=== PATIENT | female | born 1990 | race Caucasian/White ===

== ENCOUNTER 2017-09-12 07:07 | Inpatient (IN) | payer BC ==
[2017-09-12] MEDS ORDERED: METHYLERGONOVINE 0.2MG/ML AMP IM PRN (07:27)
[2017-09-12] MEDS ORDERED: Ringers Lactate 1,000 ML IV PRN (07:27)
[2017-09-12] MEDS ORDERED: CARBOPROST TROME 250 MCG/ML IM PRN (07:27)
[2017-09-12] MEDS ORDERED: OXYTOCIN/LR 20 UNIT/1,000 ML BAG IV SCH (08:00)
[2017-09-12] MEDS ORDERED: Ringers Lactate 1,000 ML IV SCH (08:00)
[2017-09-12 08:25] LABS: RPR Titer ND
[2017-09-12 08:37] LABS: Absolute Lymphocytes (CBC) 1.8 K/uL (0.7-4.9); Absolute Monocytes 0.8 K/uL (0.1-1.3); Basophils % 0.4 % (0-1.3); Eosinophils % 2.4 % (0-4.4); Hematocrit 35.1 % (36.0-45.0); Lymphocytes % 16.2 % (15.3-44.8); MCH 32.4 pg (27.0-35.0); MCV 91.8 fL (80-100); MPV 10.1 fL (7.6-11.3); Monocytes % 7.4 % (3.3-12.3); RBC Red Blood Cell Count 3.83 M/uL (3.86-4.86); Urine Appearance CLEAR; Urine Bilirubin NEGATIVE (NEG); Urine Blood NEGATIVE (NEG); Urine Color YELLOW; Urine Glucose NEGATIVE (NEG); Urine Protein NEGATIVE (NEG); Urine Specific Gravity >=1.030 (1.005-1.030); Urine pH 6.5 (5.0-7.0)
[2017-09-12 08:47] LABS: Urine Microscopic Reflex NO UMIC
[2017-09-12 09:08] VITALS: BMI 29.5
[2017-09-12] MEDS ORDERED: ROPIVACAINE HCL 100 ML IV PRN (09:41)
[2017-09-12] MEDS ORDERED: FENTANYL CITR 100 MCG/2 ML IV ONE (09:43)
[2017-09-12] MEDS ORDERED: ROPIVACAINE HCL 2 MG/ML 100ML IV ONE (09:43)
--- NOTE | 2017-09-12 14:39 | HP ---
Date of Admission: 09/12/2017 History Of Present Illness: Cheyenne is a 27-year-old, 2 para 1-0-0-1, who presents at 39 weeks and 1 day gestation for elective induction of labor. The patient has obtained care with vt beginning at 11 weeks gestation. She has been compliant with visits. There have not been any issues throughout her care. She has a history of 1 prior vaginal , delivered in 2013 at 39 weeks, 12 hours length of labor, 7 pounds 5 ounces male delivered vaginally. She had an epidural. Delivery was achieved at [facility]. Her blood type is B positive. No antibodies. She is rubella immune. RPR was negative. HIV negative. Hepatitis negative. Level 2 ultrasound was normal. She had noninvasive testing done, which was low risk male . GBS negative. Last ultrasound was performed a week ago. Infant was in cephalic presentation. EFW 6 pounds 15 ounces. SAKSHI was 9 cm. She received her Tdap i n the office on August 24, 2017. Past Medical History: Includes anxiety and depression. Past Surgical History: Includes 1 vaginal and surgery on her knee in 2004. Family History: Noncontributory. Social History: No tobacco, alcohol, or drug use. She is and working. Physical Examination: Vital Signs: On admission, blood pressure is 107/57, pulse of 59, respirations 18. She is afebrile. General: The patient is resting comfortably in bed with some minimal distress from contractions. Head and Neck: Normocephalic atraumatic. Heart: Regular rate and rhythm. Respiratory: Symmetric, nonlabored breathing. Abdomen: Gravid. Extremities: Bilateral lower extremities, no clubbing, cyanosis, or edema. Vaginal: Normal external female genitalia. Vagina is pink, moist, normal rugae. Cervix is 2 cm dil ated, 50-60% effaced, -2 station. Rupture of membranes performed clear fluid noted. On maternal fet al monitoring, heart rate baseline is at 140, good accelerations, moderate variability, categor y 1 tracing. [place] contractions are irregular. Pitocin is at 2 milliunits. Assessment And Plan: Cheyenne is a 27-year-old, 2 para 1-0-0-1, at 39 weeks and 1 day gestation , who presents for elective induction of labor. Pitocin is being given for augmentation. AROM has b een performed. Clear fluid was noted. Patient desires epidural placement. We will notify Anesthesi a. Continue maternal monitoring. Anticipate normal vaginal . HUSSAIN Voice ID: [id number]
[2017-09-12] MEDS ORDERED: ACETAMINOPHEN 500 MG TAB PO PRN (18:51)
[2017-09-12] MEDS ORDERED: METHYLERGONOVINE 0.2 MG TAB PO PRN (18:51)
[2017-09-12] MEDS ORDERED: BISACODYL 10 MG RECTAL SUPP RECT PRN (18:51)
[2017-09-12] MEDS ORDERED: DOCUSATE NA/SENNA CONC 1 TAB PO PRN (18:51)
[2017-09-12] MEDS ORDERED: Oxycodone HCl/Acetaminophen 1 TAB TAB PO PRN ×2 (18:51)
[2017-09-12] MEDS ORDERED: ONDANSETRON 4 MG (ODT) TAB PO PRN (18:51)
--- NOTE | 2017-09-12 18:53 | P.OP ---
Date of Service: 09/12/17 Findings and Operative Technique Patient delivered a viable male in cephalic presentation on 09/12/17 at 18:36. was delivered in occiput posterior position over a midline episiotomy. Once was delivered nose and mouth were suctioned with a suction bulb. Cord was clamped and cut and infant was placed on mother's abdomen for skin to skin bonding. Attention was then turned to the placenta which was delivered with gentle traction at 18:39. Placenta was examined and noted to be intact. Attention was then turned to the episiotomy which was then repaired with a 2.0 vicryl in usual fashion. Fundus was palpate and noted to be firm. EBL: 250 cc : 99 Infant: male 7 lb 5 oz. First stage of labor: 8 hours 42 min Second stage 19 min Both mom and baby are doing well.
[2017-09-12] MEDS: IBUPROFEN 200 MG TAB PO PRN (21:25)
[2017-09-13 04:25] LABS: RPR (Rapid Plasma Reagin) NON-REACT (NON-REACT)
[2017-09-13] MEDS: IBUPROFEN 200 MG TAB PO PRN ×2 (04:30→20:30)
[2017-09-13 06:45] LABS: Absolute Lymphocytes (CBC) 2.3 K/uL (0.7-4.9); Absolute Monocytes 1.4 K/uL (0.1-1.3); Absolute Neutrophil 13.8 K/uL (1.8-8.0); Basophils % 0.3 % (0-1.3); Eosinophils % 1.3 % (0-4.4); Hematocrit 34.4 % (36.0-45.0); Lymphocytes % 12.9 % (15.3-44.8); MCH 31.3 pg (27.0-35.0); MCV 93.2 fL (80-100); MPV 10.2 fL (7.6-11.3); Monocytes % 7.8 % (3.3-12.3); RBC Red Blood Cell Count 3.69 M/uL (3.86-4.86)
[2017-09-13] MEDS ORDERED: KETOROLAC 30 MG/ML INJ IM PRN (09:41)
[2017-09-13 22:31] VITALS: BP 120/71; TEMP 97.7
--- NOTE | 2017-09-13 23:14 | P.DS ---
Admission Date: 09/12/17 Discharge Date: 09/13/17 Disposition: ROUTINE DISCHARGE Discharge Condition: GOOD Brief History of Present Illness: see h&P Hospital Course: Patient is doing well. She has some pain. In control. Bonding with the baby. She is breast feeding. Vital Signs/Physical Exam: Temp Pulse Resp BP Pulse Ox 97.7 F 79 16 120/71 0 L 09/13/17 20:00 09/13/17 20:00 09/13/17 20:00 09/13/17 20:00 09/13/17 20:00 General: Alert, In no apparent distress HEENT: Atraumatic Neck: Supple Respiratory: Normal air movement Cardiovascular: No edema Gastrointestinal: Soft and benign (fundus firm below umbilicus) Musculoskeletal: No clubbing, No swelling Integumentary: No rashes Neurological: Normal gait, Normal speech External genitalia: No edema Laboratory Data at Discharge: WBC 17.8 K/uL (4.3-10.9) H D 09/13/17 06:00 Hgb 11.5 g/dL (12.0-15.0) L 09/13/17 06:00 Hct 34.4 % (36.0-45.0) L 09/13/17 06:00 Plt Count 143 K/uL (152-406) L 09/13/17 06:00 Home Medications: NK [No Home Meds] 09/12/17 Diet: Regular Activity: No lifting more than 10 lbs Followup: Marlon Travis DO [ACTIVE - CAN ADMIT] - (Follow up with Dr. Travis in 6 weeks. Call and make appointment.)
[2017-09-16 19:25] LABS: HBsAG Nonreactive (Nonreactive)
== END 2017-09-13 21:35 | disposition home or self-care (01) | DRG 775 ==
LOC: EDSTATUS 07:07 → 2ND-WC 07:08
PROVIDERS: ADMIT Student in an Organized Health Care Education/Training Program; ATTEND Student in an Organized Health Care Education/Training Program
PROC: 0W8NXZZ Division of Female Perineum, External Approach (ICD-10-PCS; principal; 2017-09-12)
PROC: 10E0XZZ Delivery of Products of Conception, External Approach (ICD-10-PCS; 2017-09-12)
PROC: 10907ZC Drainage of Amniotic Fluid, Therapeutic from Products of Conception, Via Natural or Artificial Opening (ICD-10-PCS; 2017-09-12)
PROC: 3E033VJ Introduction of Other Hormone into Peripheral Vein, Percutaneous Approach (ICD-10-PCS; 2017-09-12)
DX: O64.0XX0 Obstructed labor due to incomplete rotation of fetal head, not applicable or unspecified (principal); Z3A.39 39 weeks gestation of pregnancy; Z37.0 Single live birth
CPT/HCPCS: 36415; 81003; 85025; 86592; 86901; 87340; J2210; J2590; J2795; J3010

== ENCOUNTER 2018-11-09 09:47 | Emergency (ER) | payer BC ==
--- NOTE | 2018-11-09 11:04 | ER ---
Nurse's Notes [facility] Name: Cheyenne Coppola Age: 28 yrs Sex: Female : 1990 Arrival Date: 11/09/2018 Time: 09:50 Bed 12 Private MD: Luis Esteban Diagnosis: Suazo's palsy Presentation: 11/09 09:56 Presenting complaint: Patient states: Numbness in the tip of tongue that started on sg Sunday, just getting worse and now is in my lips, denies visual changes or any other neuro symptoms at this time. Transition of care: patient was not received from another setting of care. No acute neurological deficit is noted. Onset of symptoms was November 09, 2018. Risk Assessment: Do you want to hurt yourself or someone else? Patient reports no desire to harm self or others. Initial Sepsis Screen: Does the patient meet any 2 criteria? No. Patient's initial sepsis screen is negative. Does the patient have a suspected source of infection? No. Patient's initial sepsis screen is negative. Care prior to arrival: None. 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 - Social history:: Smoking status: Patient/guardian denies using tobacco. - Ebola Screening: : Patient negative for fever greater than or equal to 101.5 degrees Fahrenheit, and additional compatible Ebola Virus Disease symptoms Patient denies exposure to infectious person Patient denies travel to an Ebola-affected area in the 21 days before illness onset No symptoms or risks identified at this time. Screenin:10 Abuse screen: Denies threats or abuse. Denies injuries from another. Nutritional sg screening: No deficits noted. Tuberculosis screening: No symptoms or risk factors identified. Never had TB. Fall Risk None identified. Assessment: 10:10 VAN Scoring: Arm Drift: Patients demonstrates NO arm weakness. Patient is VAN Negative. sg The patient has not been NPO before screening. The patient is alert, and able to follow commands. The patient does not exhibit slurred or garbled speech. The patient is not exhibiting difficulty speaking. The patient does not exhibit difficulty understanding words. The patient is able to swallow own secretions with no drooling or need for suction. Patient tolerated one teaspoon of water. No drooling, immediate coughing, gurgling, or clearing of the throat was noted. The patient tolerated 90mL of water. No drooling, immediate coughing, gurgling, or clearing of the throat was noted. The patient passed the bedside swallow screening. Oral medications may be given as ordered. Contact Physician for further diet orders. Provider notified of bedside swallow screening results: Merritt Elizalde MD. General: Behavior is calm, cooperative, appropriate for age. Pain: Denies pain. Neuro: Level of Consciousness is awake, alert, obeys commands, Oriented to person, place, time, situation, Mosaic Technician are equal bilaterally Moves all extremities. Full function Gait is steady, Speech is normal, Facial symmetry appears normal, Pupils are PERRLA, Numbness in tongue and lips. Cardiovascular: Capillary refill is brisk in bilateral fingers Patient's skin is warm and dry. Chest pain is denied. Respiratory: Airway is patent Respiratory effort is even, unlabored, Respiratory pattern is regular, symmetrical. GI: No signs and/or symptoms were reported involving the gastrointestinal system. Derm: Skin is pink, warm \T\ dry. Musculoskeletal: No signs and/or symptoms reported regarding the musculoskeletal system. Vital Signs: 09:57 BP 128 / 78; Pulse 69; Resp 18; Temp 97.7; Pulse Ox 99% on R/A; Weight 56.7 kg; Height sg 5 ft. 2 in. (157.48 cm); Pain 0/10; 09:57 Body Mass Index 22.86 (56.70 kg, 157.48 cm) sg NIH Stroke Scale Scores: 10:10 NIHSS Score: 0 sg ED Course: 09:50 Patient arrived in ED. tw3 09:51 Luis Esteban MD is Private Physician. tw3 09:57 Triage completed. sg 09:57 Arm band placed on. sg 10:04 Ajay Thomason PA is PHCP. m 10:04 Merritt Elizalde MD is Attending Physician. jmm 10:10 Patient has correct armband on for positive identification. Bed in low position. Call sg light in reach. Side rails up X2. Pulse ox on. NIBP on. 10:41 Eligio Ramos, NOHEMY is Primary Nurse. sg 11:03 Sher Cohen MD is Referral Physician. jmm 11:29 CT completed. Patient tolerated procedure well. Patient moved back from CT. mw3 11:30 CT Head Brain wo Cont In Process Unspecified. EDMS 11:59 Sher Cohen MD is Referral Physician. jmm 12:10 No provider procedures requiring assistance completed. IV discontinued, intact, sg bleeding controlled, No redness/swelling at site. Pressure dressing applied. Administered Medications: No medications were administered Outcome: 11:03 Discharge ordered by . jmm 11:59 Discharge ordered by MD. jmm 12:10 Discharged to home ambulatory, with family. sg 12:10 Condition: good 12:10 Discharge instructions given to patient, Instructed on discharge instructions, follow up and referral plans. safety practices, Demonstrated understanding of instructions, follow-up care. 12:11 Patient left the ED. NIH Stroke Scale - NIH Stroke Score Date: 11/09/2018 Time: 10:10 Total Score = 0 1a. Level of Consciousness (LOC) - 0(Alert) 1b. Level of Consciousness (LOC) (Year \T\ Age) - 0(Both) 1c. LOC Commands (Open \T\ Closes Eyes/Communications Assistant) - 0(Both) 2. Best Gaze (Lateral Gaze Paresis) - 0(Normal) 3. Visual Field Loss - 0(No visual loss) 4. Facial Palsy - 0(Normal) 5a. Left Arm: Motor (10-second hold) - 0(No drift) 5b. Right Arm: Motor (10-second hold) - 0(No drift) 6a. Left Leg: Motor (5-second hold - always test supine) - 0(No drift) 6b. Right Leg: Motor (5-second hold - always test supine) - 0(No drift) 7. Limb Ataxia (finger/nose \T\ heel/connelly - test with eyes open) - 0(Absent) 8. Sensory Loss (pinprick arms/legs/face) - 0(Normal) 9. Best Language: Aphasia (description/naming/reading) - 0(No aphasia) 10. Dysarthria (speech clarity - read or repeat words) - 0(Normal) 11. Extinction and Inattention (visual/tactile/auditory/spatial/personal) - 0(No abnormality) Initials: sg Signatures: Dispatcher [employer] Eligio Huitron, RN RN sg Ajay Thomason PA PA jmm Wade, Tia tw3 Naila Mascorro mw3
--- NOTE | 2018-11-09 11:04 | EDPHYS ---
Physician Documentation [facility] Name: Cheyenne Coppola Age: 28 yrs Sex: Female : 1990 Arrival Date: 11/09/2018 Time: 09:50 Bed 12 Private MD: Luis Esteban ED Physician Merritt Elizalde HPI: 11/09 10:56 This 28 yrs old Female presents to ER via Ambulatory with complaints of jmm Facial Droop, Numbness. 10:56 The patient presents to the emergency department with facial droop. Onset: The jmm symptoms/episode began/occurred gradually, 3 day(s) ago. This is a 28 year old female with no chronic medical conditions that presents to the ED with complaints of facial droop beginning 3 days ago which became more pronounced this morning. Patient states on Sunday developed numbness to her tongue and change in taste. Patient states she has developed irritation to her right eye and noticed a droop today with increased difficulty brushing her teeth. Patient denies slurred speech, denies unilateral weakness to her upper and lower extremities. . 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 - Social history:: Smoking status: Patient/guardian denies using tobacco. - Ebola Screening: : Patient negative for fever greater than or equal to 101.5 degrees Fahrenheit, and additional compatible Ebola Virus Disease symptoms Patient denies exposure to infectious person Patient denies travel to an Ebola-affected area in the 21 days before illness onset No symptoms or risks identified at this time. ROS: 10:56 Constitutional: Negative for fever, chills, and weight loss, Cardiovascular: Negative jmm for chest pain, palpitations, and edema, Respiratory: Negative for shortness of breath, cough, wheezing, and pleuritic chest pain. 10:56 Neuro: Positive for numbness. 10:56 All other systems are negative. Exam: 10:56 Constitutional: This is a well developed, well nourished patient who is awake, alert, jmm and in no acute distress. 10:56 Eyes: EOMI, no conjunctival erythema appreciated ENT: Moist Mucus Membranes Neck: Trachea midline, Supple Chest/axilla: Normal chest wall appearance and motion. Cardiovascular: Regular rate and rhythm. No edema appreciated Respiratory: Normal respirations, no respiratory distress appreciated Abdomen/GI: Non distended, soft Back: Normal ROM Skin: General appearance color normal MS/ Extremity: Moves all extremities, no obvious deformities appreciated, no edema noted to the lower extremities 10:56 Head/face: right sided facial droop appreciated. 10:56 Neuro: Orientation: is normal, Mentation: is normal, Memory: is normal, Cerebellar function: normal finger to nose testing, Motor: is normal, facial droop noted to the right side. eyebrow involvement is noted. 10:56 Psych: Behavior/mood is pleasant, cooperative. Vital Signs: 09:57 BP 128 / 78; Pulse 69; Resp 18; Temp 97.7; Pulse Ox 99% on R/A; Weight 56.7 kg; Height sg 5 ft. 2 in. (157.48 cm); Pain 0/10; 09:57 Body Mass Index 22.86 (56.70 kg, 157.48 cm) sg NIH Stroke Scale Scores: 10:10 NIHSS Score: 0 sg MDM: 10:47 Patient medically screened. hitesh 10:56 Data reviewed: vital signs, nurses notes. Counseling: I had a detailed discussion with hitesh the patient and/or guardian regarding: the historical points, exam findings, and any diagnostic results supporting the discharge/admit diagnosis, the need for outpatient follow up, to return to the emergency department if symptoms worsen or persist or if there are any questions or concerns that arise at home. ED course: PE findings consistent with Suazo's Palsy. I do not currently suspect CVA. Patient is advised to follow up with neurology for further evaluation. Patient is otherwise given strict return precautions. Patient understood and agrees with the plan of care. . 11/09 11:15 Order name: CT Head Brain wo Cont; Complete Time: 11:59 hitesh Administered Medications: No medications were administered Disposition: 16:27 Co-signature as Attending Physician, Merritt Elizalde MD. Disposition: 11/09/18 11:59 Discharged to Home. Impression: Suazo's palsy. - Condition is Stable. - Discharge Instructions: Suazo Palsy, Adult. - Prescriptions for Prednisone 20 mg Oral Tablet - take 3 tablet by ORAL route once daily for 5 days; 15 tablet. Valtrex 1 g Oral Tablet - take 1 tablet by ORAL route every 8 hours for 7 days; 21 tablet. - Medication Reconciliation Form, Thank You Letter, Antibiotic Education, Prescription Opioid Use form. - Follow up: Sher Cohen MD; When: 2 - 3 days; Reason: Recheck today's complaints, Continuance of care, Re-evaluation by your physician. NIH Stroke Scale - NIH Stroke Score Date: 11/09/2018 Time: 10:10 Total Score = 0 1a. Level of Consciousness (LOC) - 0(Alert) 1b. Level of Consciousness (LOC) (Year \T\ Age) - 0(Both) 1c. LOC Commands (Open \T\ Closes Eyes/Campus Administrative Assistant) - 0(Both) 2. Best Gaze (Lateral Gaze Paresis) - 0(Normal) 3. Visual Field Loss - 0(No visual loss) 4. Facial Palsy - 0(Normal) 5a. Left Arm: Motor (10-second hold) - 0(No drift) 5b. Right Arm: Motor (10-second hold) - 0(No drift) 6a. Left Leg: Motor (5-second hold - always test supine) - 0(No drift) 6b. Right Leg: Motor (5-second hold - always test supine) - 0(No drift) 7. Limb Ataxia (finger/nose \T\ heel/connelly - test with eyes open) - 0(Absent) 8. Sensory Loss (pinprick arms/legs/face) - 0(Normal) 9. Best Language: Aphasia (description/naming/reading) - 0(No aphasia) 10. Dysarthria (speech clarity - read or repeat words) - 0(Normal) 11. Extinction and Inattention (visual/tactile/auditory/spatial/personal) - 0(No abnormality) Initials: sg Signatures: Dispatcher [employer] Eligio Huitron RN RN Ajay Carmona PA PA jmm Starr, Gregory, MD MD gs Corrections: (The following items were deleted from the chart) 11:14 11:03 11/09/2018 11:03 Discharged to Home. Impression: Suazo's palsy. Condition hitesh is Stable. Forms are Medication Reconciliation Form, Thank You Letter, Antibiotic Education, Prescription Opioid Use. Follow up: Sher Cohen; When: 2 - 3 days; Reason: Recheck today's complaints, Continuance of care, Re-evaluation by your physician. hitesh 12:11 11:59 11/09/2018 11:59 Discharged to Home. Impression: Suazo's palsy. Condition sg is Stable. Prescriptions for Prednisone 20 mg Oral Tablet - take 3 tablets by ORAL route once daily for 5 days Take 3 tabs by mouth daily for 3 days, then take 2 tabs by mouth daily for 3 days, then take 1 tab by mouth daily for 3 days, then take 1/2 tab by mouth daily for 3 days.; 20 tablet, Valtrex 1 g Oral Tablet - take 1 tablet by ORAL route every 8 hours for 7 days; 21 tablet. and Forms are Medication Reconciliation Form, Thank You Letter, Antibiotic Education, Prescription Opioid Use. Follow up: Sher Cohen; When: 2 - 3 days; Reason: Recheck today's complaints, Continuance of care, Re-evaluation by your physician. hitesh
--- NOTE | 2018-11-09 11:57 | RAD REPORT ---
EXAM DESCRIPTION: CT - Head Brain Wo Cont - 11/09/2018 11:30 am CLINICAL HISTORY: Numbness COMPARISON: None. TECHNIQUE: Computed axial tomography of the head was obtained. IV contrast was not requested. All CT scans are performed using dose optimization technique as appropriate and may include automated exposure control or mA/KV adjustment according to patient size. FINDINGS: An intracranial bleed is not seen . The ventricles are normal in caliber. No extra-axial fluid collection is noted. Fluid within the sinuses/ mastoids is not seen. IMPRESSION: No acute intracranial abnormality is seen. If patient's symptoms persist MRI of the bra in would be recommended.
[2018-11-09 15:21] VITALS: BP 128/78; TEMP 97.7; O2SAT 99
== END 2018-11-09 12:11 | disposition home or self-care (01) ==
LOC: ER 09:47
DX: G51.0 Bell's palsy (principal)
CPT/HCPCS: 70450; 99284

== ENCOUNTER 2024-04-19 18:53 | Emergency (ER) | payer BC ==
--- OUTSIDE RECORDS SUMMARY | 2024-04-19 18:56 | XMS REPORT | Continuity of Care Document ---
Author Name Unknown Address [address] [place] [address] [facility] Address [address] [place] [address] Care Team Providers Care Card Filer Name Role Phone HALLE BENTLEY Attending Clinician Unavailable Payers Payer Name Policy Type Policy Number Effective Date Expirati on Date Source [facility] [id number] 2018 00:00:00 Allergies, Adverse Reactions, Alerts Allergy Name Allergy Type Status Severity Reaction(s) Onset Date Inactive Date Treating Clinician Comments Source NO KNOWN ALLERGIE S Drug Class Active [facility] Encounters Start Date/Time End Date/Time Encounter Type Admission Type Attending Clinicians Care Facility Care Department Encounter ID Source 2020-08-04 14:40:00 2020-08-04 14:40:[address] [facility] [id number] [facility] 2020 13:40:00 2020 13:40:[address] [facility] [id number] [facility] Results Test Description Test Time Test Comments Results Result Co mments Source
[2024-04-19 20:01] LABS: Absolute Basophils 0.1 K/uL (0-0.5); Absolute Eosinophils 0.2 K/uL (0-0.5); Absolute Monocytes 0.7 K/uL (0.1-1.3); Absolute Neutrophil 5.1 K/uL (1.8-8.0); Basophils % 0.7 % (0-1.3); Eosinophils % 2.4 % (0-4.4); Hematocrit 39.7 % (36.0-45.0); Hemoglobin 13.6 g/dL (12.0-15.0); MCH 31.6 pg (27.0-35.0); MCHC 34.3 g/dL (32.0-36.0); MCV 92.1 fL (80-100); MPV 8.1 fL (7.6-11.3); Monocytes % 8.2 % (3.3-12.3); Neutrophils % 55.7 % (41.7-73.7); Nucleated Red Blood Cells % 0.1 % (0-0); Platelets 234 thou/uL (152-406); RBC Red Blood Cell Count 4.31 M/uL (3.86-4.86); Red Cell Distribution Width 11.9 % (12.1-15.2)
[2024-04-19 20:18] LABS: Anion Gap 7.6 mEq/L (5.0-15.0); Magnesium 2.3 mg/dL (1.6-2.4); Potassium 3.6 mEq/L (3.5-5.1)
--- NOTE | 2024-04-19 20:24 | RAD REPORT ---
EXAM: CT Head Brain Wo Cont HISTORY: right facial droop COMPARISON: None TECHNIQUE: Multiple contiguous axial images were obtained for a CT of the brain without contrast. Sag ittal and coronal reformats were performed. One or more of the following dose reduction techniques were used: Automated exposure control, adjus tment of the mA and kV according to patient size, and iterative reconstruction. Unless otherwise specified, incidental findings do not require dedicated imaging follow-up. FINDINGS: No evidence of hydrocephalus, intracranial hemorrhage, or extra-axial fluid collection. The brain is normal in morphology. The calvarium is intact. The visualized paranasal sinuses and mastoid air cells are essentially clear . IMPRESSION: No evidence of acute intracranial abnormality.
--- NOTE | 2024-04-19 20:47 | EDPHYS ---
Physician Documentation [facility] Name: Cheyenne Coppola Age: 34 yrs Sex: Female : 1990 Arrival Date: 04/19/2024 Time: 18:53 Bed 16 Private MD: ED Physician Charbel Duncan HPI: 04/19 20:44 This 34 yrs old Female presents to ER via Ambulatory with complaints of Facial Droop. rn 20:44 The patient presents to the emergency department with weakness of the left side of the rn face, right side of the face. Onset: The symptoms/episode began/occurred yesterday. Severity of symptoms: At their worst the symptoms were moderate in the emergency department the symptoms are unchanged. Current symptoms:. The patient has experienced a previous episode. Patient reports mainly left-sided facial weakness that began yesterday. 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 No trauma. Did have viral illness 2 weeks ago and reports pain to the right ear. No fever. No diplopia. No shortness of breath. Nondiabetic.. CRM SOLUTION ARCHITECT: 21:08 Not kj2 Historical: - Allergies: 19:11 No Known Allergies; aa5 - PMHx: 19:11 Acne; aa5 - PSHx: 19:11 None; aa5 - Immunization history:: Adult Immunizations unknown. - Infectious Disease History:: Denies. - Social history:: Smoking status: Patient denies any tobacco usage or history of. - Family history:: not pertinent. - Hospitalizations: : No recent hospitalization is reported. ROS: 20:44 Constitutional: Negative for fever, chills, and weight loss, Eyes: Negative for injury, rn pain, redness, and discharge, Cardiovascular: Negative for chest pain, palpitations, and edema, Respiratory: Negative for shortness of breath, cough, wheezing, and pleuritic chest pain, Abdomen/GI: Negative for abdominal pain, nausea, vomiting, diarrhea, and constipation, MS/Extremity: Negative for injury and deformity, Skin: Negative for injury, rash, and discoloration, Neuro: Positive for left facial weakness, brow and lower face Exam: 20:44 Constitutional: This is a well developed, well nourished patient who is awake, alert, rn and in no acute distress. Head/Face: Normocephalic, atraumatic. Eyes: Pupils equal round and reactive to light, extra-ocular motions intact. Lids and lashes normal. Conjunctiva and sclera are non-icteric and not injected. Cornea within normal limits. Periorbital areas with no swelling, redness, or edema. Neck: Trachea midline, no masses palpated, and no cervical lymphadenopathy. Supple, full range of motion without nuchal rigidity, or vertebral point tenderness. No Meningismus. MS/ Extremity: Pulses equal, no cyanosis. Neuro: Awake and alert, GCS 15, oriented to person, place, time, and situation. Left upper and lower facial weakness, moderate in severity. Also mild right upper facial weakness but not as pronounced as the left side. (Patient states previous Suazo's palsy was on the right side and not sure if completely resolved). Motor strength 5/5 in all extremities. Sensory grossly intact. Cerebellar exam normal. Normal gait. Vital Signs: 19:00 BP 137 / 92; Pulse 84; Resp 18 S; Temp 98.2(TE); Pulse Ox 100% on R/A; Weight 58.97 kg aa5 (R); Height 5 ft. 3 in. (R); 19:40 BP 123 / 85; Pulse 88; Resp 18; Pulse Ox 100% on R/A; kj2 20:41 BP 132 / 86; Pulse 76; Resp 18; Pulse Ox 100% ; kj2 21:11 BP 128 / 75; Pulse 80; Resp 18; Temp 98; Pulse Ox 100% ; kj2 19:00 Body Mass Index 23.03 (58.97 kg, 160.02 cm) aa5 NIH Stroke Scale Scores: 21:06 NIHSS Score: 1 kj2 MDM: 19:00 Medical Screening Exam initiated rn 20:44 Data reviewed: vital signs, nurses notes, lab test result(s), radiologic studies, CT rn scan, and as a result, I will discharge patient. Counseling: I had a detailed discussion with the patient and/or guardian regarding the historical points, exam findings, and any diagnostic results supporting the discharge/admit diagnosis, lab results, radiology results, the need for outpatient follow up, to return to the emergency department if symptoms worsen or persist or if there are any questions or concerns that arise at home. Special discussion: I discussed with the patient/guardian in detail that at this point there is no indication for admission to the hospital. It is understood, however, that if the symptoms persist or worsen the patient needs to return immediately for re-evaluation. Based on the history and exam findings, there is no indication for further emergent testing or inpatient evaluation. I discussed with the patient/guardian the need to see the neurologist for further evaluation of the symptoms. I discussed with the patient/guardian the need to see the primary care provider for further evaluation of the symptoms. ED course: No abnormalities in blood work or CT head. Patient with signs consistent with Suazo's palsy. This is second episode of Suazo's palsy and patient also states has had shingles in the past, recommend PCP and neuro follow-up. Patient may benefit from rheumatologic or autoimmune workup including thyroid studies.. 04/19 19:22 Order name: CBC with Diff; Complete Time: 20:38 rn 04/19 19:22 Order name: Basic Metabolic Panel; Complete Time: 20:38 rn 04/19 19:22 Order name: Magnesium; Complete Time: 20:38 rn 04/19 19:14 Order name: CT Head Brain wo Cont; Complete Time: 20:38 rn 04/19 19:22 Order name: IV Start; Complete Time: 19:46 rn Administered Medications: 21:08 Drug: MethylPrednisoLONE IVP 125 mg IVP once Route: IVP; Site: left antecubital; kj2 21:08 Follow up: Response: No adverse reaction; Medication administered at discharge. kj2 Point of Care Testing: Blood Glucose: 21:08 Blood Glucose: 88 mg/dL; kj2 Ranges: Critical Glucose Levels:Adult <50 mg/dl or >400 mg/dl <40 mg/dl or >180 mg/dl Disposition Summary: 04/19/24 20:47 Discharge Ordered Notes: Location: Home rn Problem: new rn Symptoms: are unchanged rn Condition: Stable rn Diagnosis - Suazo's palsy rn Followup: rn - With: Private Physician - When: As needed - Reason: Recheck today's complaints, Re-evaluation by your physician Discharge Instructions: - Discharge Summary Sheet rn - Suazo's Palsy, Adult rn Forms: - Medication Reconciliation Form rn - Antibiotic government operations consultant - Prescription Opioid Use rn - Patient Portal Instructions rn - Leadership Thank You Letter rn Prescriptions: - Acyclovir 800 mg Oral Tablet - take 1 tablet ORAL route 5 times per day for 10 days; 50 tablet; Refills: 0, rn Product Selection Permitted - Medrol (Leonardo) 4 mg Oral Tablets, Dose Pack - take 1 tablet ORAL route as directed - follow package instructions; 1 packet; rn Refills: 0, Product Selection Permitted NIH Stroke Scale - NIH Stroke Score Date: 04/19/2024 Time: 21:06 Total Score = 1 10. Dysarthria (speech clarity - read or repeat words) - 0(Normal) 11. Extinction and Inattention (visual/tactile/auditory/spatial/personal) - 0(No abnormality) 1a. Level of Consciousness (LOC) - 0(Alert) 1b. Level of Consciousness (LOC) (Month \T\ Age) - 0(Both) 1c. LOC Commands (Open \T\ Closes Eyes/Carpenter Rough) - 0(Both) 2. Best Gaze (Lateral Gaze Paresis) - 0(Normal) 3. Visual Field Loss - 0(No visual loss) 4. Facial Palsy - 1(Minor Paralysis) 5a. Left Arm: Motor (10-second hold) - 0(No drift) 5b. Right Arm: Motor (10-second hold) - 0(No drift) 6a. Left Leg: Motor (5-second hold - always test supine) - 0(No drift) 6b. Right Leg: Motor (5-second hold - always test supine) - 0(No drift) 7. Limb Ataxia (finger/nose \T\ heel/connelly - test with eyes open) - 0(Absent) 8. Sensory Loss (pinprick arms/legs/face) - 0(Normal) 9. Best Language: Aphasia (description/naming/reading) - 0(No aphasia) Initials: kj2 Signatures: Dispatcher [employer] EDMS Charbel Duncan MD MD rn Calderon, Audri RN RN aa5 Jeanne Tejada RN RN kj2 Corrections: (The following items were deleted from the chart) 19:23 19:23 CBC+H.LAB.BRZ ordered. EDMS EDMS 19:23 19:23 BASIC METABOLIC PANEL+C.LAB.BRZ ordered. EDMS EDMS 19:23 19:23 MAGNESIUM+C.LAB.BRZ ordered. EDMS EDMS
--- NOTE | 2024-04-19 20:47 | ER ---
Nurse's Notes [facility] Name: Cheyenne Coppola Age: 34 yrs Sex: Female : 1990 Arrival Date: 04/19/2024 Time: 18:53 Bed 16 Private MD: Diagnosis: Suazo's palsy Presentation: 04/19 19:00 Chief complaint: Patient states: Sent from urgent care for right facial droop that she aa5 noticed this morning. Pt also reports right ear pain and right jaw pain. 19:00 Onset of symptoms was March 2024. aa5 19:00 Acuity: IRINEO 3 aa5 19:00 Method Of Arrival: Ambulatory aa5 19:00 Coronavirus screen: At this time, the client does not indicate any symptoms associated aa5 with coronavirus-19. Ebola Screen: Patient denies travel to an Ebola-affected area in the 21 days before illness onset. Initial Sepsis Screen: Does the patient meet any 2 criteria? No. Patient's initial sepsis screen is negative. Does the patient have a suspected source of infection? No. Patient's initial sepsis screen is negative. Risk Assessment: Do you want to hurt yourself or someone else? Patient reports no desire to harm self or others. 19:00 An acute neurological deficit is present. Pre-hospital glucose is not applicable to aa5 this patient. Triage Assessment: 19:40 General: Appears in no apparent distress. comfortable. kj2 20:41 The onset of the patients symptoms was April 19, 2024 at 20:41. kj2 21:09 Neuro: Reports RIGHT SIDED FACIAL WEAKNESS/PARALYSIS. kj2 WOOD HEEL FLAP RUBBER: 21:08 Not kj2 Stroke Activation: Symptom onset > 6 hours Physician: ED Attending; Name: ; Notified At: ; Arrived At: Physician: Mid-Level Provider; Name: ; Notified At: ; Arrived At: Physician: [not used]; Name: ; Notified At: ; Arrived At: Physician: [not used]; Name: ; Notified At: ; Arrived At: Physician: [not used]; Name: ; Notified At: ; Arrived At: Historical: - Allergies: 19:11 No Known Allergies; aa5 - PMHx: 19:11 Acne; aa5 - PSHx: 19:11 None; aa5 - Immunization history:: Adult Immunizations unknown. - Infectious Disease History:: Denies. - Social history:: Smoking status: Patient denies any tobacco usage or history of. - Family history:: not pertinent. - Hospitalizations: : No recent hospitalization is reported. Screenin:40 [facility] ED Fall Risk Assessment (Adult) History of falling in the last 3 months, kj2 including since admission No falls in past 3 months (0 pts) Confusion or Disorientation No (0 pts) Intoxicated or Sedated No (0 pts) Impaired Gait No (0 pts) Mobility Assist Device Used No (0 pt) Altered Elimination No (0 pt) Score/Fall Risk Level 0 - 2 = Low Risk. Abuse screen: Denies threats or abuse. Denies injuries from another. Nutritional screening: No deficits noted. Tuberculosis screening: No symptoms or risk factors identified. Assessment: 19:40 General: Appears in no apparent distress. Behavior is calm, cooperative. Pain: kj2 Complains of pain in RIGHT SIDE OF JAW Pain currently is 5 out of 10 on a pain scale. Neuro: Level of Consciousness is awake, alert, obeys commands, Oriented to person, place, time, situation. Cardiovascular: Patient's skin is warm and dry. Respiratory: Airway is patent Respiratory effort is even, unlabored. GI: No signs and/or symptoms were reported involving the gastrointestinal system. : No signs and/or symptoms were reported regarding the genitourinary system. 19:40 [place] Swallow Protocol Notified: Charbel Duncan MD. TNKase (Tenecteplase) Screening: Not kj2 Applicable. 20:00 [place] Swallow Protocol Exclusion Criteria: Brief Cognitive Screen What is your name? kj2 Normal, Where are you right now? Normal, What year is it? Normal. 20:39 VAN Scoring: Arm Drift: Patients demonstrates NO arm weakness. Patient is VAN Negative. kj2 Visual Disturbance: No visual disturbance noted. Aphasia: No aphasia noted. Neglect: No neglect noted. [place] Swallow Protocol Oral Mechanism Examination Facial Symmetry: RIGHT SIDE OF FACE SMILE NOT NORMAL Motion: Normal, 3 oz Water Swallow Challenge: Pt able to drink all water without stopping, coughing, choking or throat clearing: Yes Result:. 20:42 Reassessment: Patient appears in no apparent distress at this time. Patient and/or kj2 family updated on plan of care and expected duration. Pain level reassessed. Patient is alert, oriented x 3, equal unlabored respirations, skin warm/dry/pink. Vital Signs: 19:00 BP 137 / 92; Pulse 84; Resp 18 S; Temp 98.2(TE); Pulse Ox 100% on R/A; Weight 58.97 kg aa5 (R); Height 5 ft. 3 in. (R); 19:40 BP 123 / 85; Pulse 88; Resp 18; Pulse Ox 100% on R/A; kj2 20:41 BP 132 / 86; Pulse 76; Resp 18; Pulse Ox 100% ; kj2 21:11 BP 128 / 75; Pulse 80; Resp 18; Temp 98; Pulse Ox 100% ; kj2 19:00 Body Mass Index 23.03 (58.97 kg, 160.02 cm) aa5 NIH Stroke Scale Scores: 21:06 NIHSS Score: 1 kj2 ED Course: 18:56 Patient arrived in ED. sj2 19:00 Charbel Duncan MD is Attending Physician. rn 19:00 Arm band placed on. aa5 19:12 Triage completed. aa5 19:37 Inserted saline lock: 22 gauge in left antecubital area, using aseptic technique. Blood ty collected. Flushed with 10 mL NS. 19:37 Initial lab(s) drawn, by me, held in ED. ty 19:40 Patient has correct armband on for positive identification. Bed in low position. Call kj2 light in reach. Provided Education on: CALL LIGHT, FALL PRECAUTIONS. 19:40 No provider procedures requiring assistance completed. kj2 19:46 CT Head Brain wo Cont In Process Unspecified. EDMS 19:46 CBC with Diff Sent. ty 19:46 Basic Metabolic Panel Sent. ty 19:46 Magnesium Sent. ty 20:02 Jeanne Tejada, RN is Primary Nurse. kj2 21:10 IV discontinued, intact, bleeding controlled, No redness/swelling at site. Pressure kj2 dressing applied. Administered Medications: 21:08 Drug: MethylPrednisoLONE IVP 125 mg IVP once Route: IVP; Site: left antecubital; kj2 21:08 Follow up: Response: No adverse reaction; Medication administered at discharge. kj2 Medication: 20:36 VIS not applicable for this client. kj2 Point of Care Testing: Blood Glucose: 21:08 Blood Glucose: 88 mg/dL; kj2 Ranges: Outcome: 20:47 Discharge ordered by . rn 21:10 Discharged to home ambulatory, with family, norma 21:10 Condition: stable 21:10 Discharge instructions given to patient, Instructed on discharge instructions, follow up and referral plans. medication usage, Demonstrated understanding of instructions, follow-up care, medications, Prescriptions given X 2, 21:11 Patient left the ED. kj2 NIH Stroke Scale - NIH Stroke Score Date: 04/19/2024 Time: 21:06 Total Score = 1 10. Dysarthria (speech clarity - read or repeat words) - 0(Normal) 11. Extinction and Inattention (visual/tactile/auditory/spatial/personal) - 0(No abnormality) 1a. Level of Consciousness (LOC) - 0(Alert) 1b. Level of Consciousness (LOC) (Month \T\ Age) - 0(Both) 1c. LOC Commands (Open \T\ Closes Eyes/Faculty I On Call Medical Assistant) - 0(Both) 2. Best Gaze (Lateral Gaze Paresis) - 0(Normal) 3. Visual Field Loss - 0(No visual loss) 4. Facial Palsy - 1(Minor Paralysis) 5a. Left Arm: Motor (10-second hold) - 0(No drift) 5b. Right Arm: Motor (10-second hold) - 0(No drift) 6a. Left Leg: Motor (5-second hold - always test supine) - 0(No drift) 6b. Right Leg: Motor (5-second hold - always test supine) - 0(No drift) 7. Limb Ataxia (finger/nose \T\ heel/connelly - test with eyes open) - 0(Absent) 8. Sensory Loss (pinprick arms/legs/face) - 0(Normal) 9. Best Language: Aphasia (description/naming/reading) - 0(No aphasia) Initials: kj2 Signatures: Dispatcher [employer] EDMS Charbel Duncan MD MD rn Calderon, Audri RN RN aa5 Evelio Mcgrath Krystal, RN RN kj2 Aniket Eddy sj2 Corrections: (The following items were deleted from the chart) 19:11 19:11 Arm band placed on aa5 aa5 19:16 19:00 Chief complaint: Patient states: Sent from urgent care for right facial aa5 droop. Pt also reports right ear pain and right jaw pain. aa5
[2024-04-19] MEDS ORDERED: METHYLPREDNISOLONE 125 MG INJ ONE (20:54)
[2024-04-20 09:14] VITALS: O2SAT 100
[2024-04-20 09:18] VITALS: BP 128/75; TEMP 98
== END 2024-04-19 21:11 | disposition home or self-care (01) ==
LOC: ER 18:53
DX: G51.0 Bell's palsy (principal); R29.701 NIHSS score 1
CPT/HCPCS: 85025; 80048; 36415; 83735; 70450; 96374; 99285; J2919